=== PATIENT | male | born 1950 | race Caucasian/White ===

== ENCOUNTER 2019-10-05 21:15 | Emergency (ER) | payer MEDICARE, SELFPAY ==
[2019-10-05 21:25] VITALS: BP 199/93; PULSE 55; RESP 20; TEMP 36.9; O2SAT 96; BMI 34.7
--- NOTE | 2019-10-05 21:35 | DI.RAD.S_ITS ---
PROCEDURE: XR FOOT LT MIN 3V INDICATIONS: cut bottom of foot on sharp rock TECHNIQUE: 3 views of the foot were acquired. COMPARISON: None. FINDINGS: Bones: No fractures or dislocations. No suspicious bony lesions. Well-defined plantar enthesophyte seen. Soft tissues: No tibiotalar joint effusion. Achilles tendon appears normal. Laceration over plantar aspect of hindfoot/midfoot is seen. No radiopaque foreign body. IMPRESSION: No acute left foot fracture or dislocation. Laceration over plantar aspect of the midfoot/hindfoot. No radiopaque foreign body. Dictated by: Axel Beavers M.D. on 10/05/2019 at 21:58 Approved by: Axel Beavers M.D. on 10/05/2019 at 21:59
--- NOTE | 2019-10-05 22:32 | ED.WOUNDLAC ---
HPI - Wound/Laceration <CHRISTI Nolan - Last Filed: 10/05/19 23:09> General Chief Complaint: Wound/Laceration Stated Complaint: 3 Laceration in Bottom of Left Foot Time Seen by Provider: 10/05/19 22:32 Mode of arrival: Wheelchair History of Present Illness HPI narrative: 68-year-old male presents emergency department for a laceration on the bottom of his left foot. He states he was walking on some cement and stepped on a rock which caused a laceration and bleeding. He denies any numbness, tingling, difficulty moving his foot, other trauma, or other any other concerns. He denies any major medical issues. Denies any blood thinners. Denies any major allergies. Patient states his last Tdap was 2 years ago. Related Data Allergies Allergy/AdvReac Type Severity Reaction Status Date / Time scopolamine Allergy Unconscious Verified 10/05/19 21:32 Review of Systems <CHRISTI Nolan - Last Filed: 10/05/19 23:09> Review of Systems Narrative: REVIEW OF SYSTEMS: GENERAL: Denies fever or chills. HENT: Denies head trauma. EYE: Denies double vision or vision loss. CARDIOVASCULAR: Denies syncope. MUSCULOSKELETAL: Denies weakness, or deformities. INTEGUMENTARY: Complains of laceration to foot,, see HPI. NEURO: Denies numbness or tingling. Patient History <CHRISTI Nolan - Last Filed: 10/05/19 23:09> Medical History No significant medical problems (Acute) Social History Smoking Status: Never smoker Smoking Status: Never smoker alcohol intake frequency: 0-2 drinks per day Substance Use Type: does not use Exam <CHRISTI Nolan - Last Filed: 10/05/19 23:09> Initial Vital Signs Initial Vital Signs: Vital Signs Temperature 98.4 F 10/05/19 21:25 Pulse Rate 55 L 10/05/19 21:25 Respiratory Rate 20 10/05/19 21:25 Blood Pressure 199/93 H 10/05/19 21:25 Pulse Oximetry 96 10/05/19 21:25 PHYSICAL EXAMINATION: GENERAL: Well groomed, alert, and cooperative. Answers questions promptly and appropriately. Vital signs noted. HENT: Normocephalic, atraumatic. RESPIRATORY: Normal respiratory rate, trachea midline, airway patent. No stridor, nasal flaring or accessory muscle use. MUSCULOSKELETAL: Full range of motion of foot against resistance. Normal gait and coordination. Equal tone and mass bilaterally. EXTREMITIES: CMS intact. Moves all extremities. Pedal pulses 2+ and intact bilaterally. SKIN: Warm, dry, soft, appropriate color for ethnicity. A 9 cm straight horizontal laceration noted to the bottom of left foot on the medial aspect of patient's arch. Bleeding controlled with pressure. NEURO: Alert and Oriented X 3. Good coordination. PSYCH: Appropriate affect and mood. <Raquel King MD - Last Filed: 10/06/19 06:14> Initial Vital Signs Initial Vital Signs: Vital Signs Temperature 98.4 F 10/05/19 21:25 Pulse Rate 55 L 10/05/19 21:25 Respiratory Rate 20 10/05/19 21:25 Blood Pressure 199/93 H 10/05/19 21:25 Pulse Oximetry 96 10/05/19 21:25 Procedures <CHRISTI Nolan - Last Filed: 10/05/19 23:09> Laceration Repair Laceration 1: Site: lower extremity Side (If applicable): left Size (cm): 9 Description: linear Depth: simple, single layer Local Anesthetic: lidocaine 1% and with epi Amount of anesthesia used (mL): 5 Pre-repair: wound explored, irrigated extensively and deep structures intact Skin layer closed with: nylon Size (cm): 5-0 Number of sutures: 10 Technique: simple, interrupted Course <CHRISTI Nolan - Last Filed: 10/05/19 23:09> Orders Ordered: ED Orders 10/05/19 21:35 XR foot LT min 3V Stat Discontinued Medications Bacitracin (Bacitracin) 1 applic TOP NOW ONE Stop: 10/05/19 22:34 Last Admin: 10/05/19 23:04 Dose: 1 applic Documented by: CHIKIS Lidocaine/Epinephrine (Xylocaine 2% W/Epi) 20 ml INJ INTRA-OP ONE Stop: 10/05/19 22:34 Last Admin: 10/05/19 23:04 Dose: 20 ml Documented by: CHIKIS Vital Signs Vital signs: Vital Signs - 8 hr 10/05/19 23:21 Pulse Rate 60 Respiratory Rate 16 Blood Pressure 165/75 H Pulse Oximetry 97 <Raquel King MD - Last Filed: 10/06/19 06:14> Orders Ordered: ED Orders 10/05/19 21:35 XR foot LT min 3V Stat Discontinued Medications Bacitracin (Bacitracin) 1 applic TOP NOW ONE Stop: 10/05/19 22:34 Last Admin: 10/05/19 23:04 Dose: 1 applic Documented by: CHIKIS Lidocaine/Epinephrine (Xylocaine 2% W/Epi) 20 ml INJ INTRA-OP ONE Stop: 10/05/19 22:34 Last Admin: 10/05/19 23:04 Dose: 20 ml Documented by: CHIKIS Vital Signs Vital signs: Vital Signs - 8 hr 10/05/19 23:21 Pulse Rate 60 Respiratory Rate 16 Blood Pressure 165/75 H Pulse Oximetry 97 MDM - Wound/Laceration <CHRISTI Nolan - Last Filed: 10/05/19 23:09> Medical Records Attestation: I reviewed the patient's medical records. Lab Data Attestation: I reviewed the patient's lab results. Imaging Data Extremity x-ray #1: Radiologist's Impression: [place] [address] XRay Report Signed Patient: Hari Aguilar TMR#: [id number] : 2Acct:[id number] Age/Sex: 68 / MDate of Service: 10/05/19 Loc: ED Accession Number: [id number] Procedure: XR foot LT min 3V Ordering Provider: Raquel King MD PROCEDURE: XR FOOT LT MIN 3V INDICATIONS: cut bottom of foot on sharp rock TECHNIQUE: 3 views of the foot were acquired. COMPARISON: None. FINDINGS: Bones: No fractures or dislocations. No suspicious bony lesions. Well-defined plantar enthesophyte seen. Soft tissues: No tibiotalar joint effusion. Achilles tendon appears normal. Laceration over plantar aspect of hindfoot/midfoot is seen. No radiopaque foreign body. IMPRESSION: No acute left foot fracture or dislocation. Laceration over plantar aspect of the midfoot/hindfoot. No radiopaque foreign body. Dictated by: Axel Beavers M.D. on 10/05/2019 at 21:58 Approved by: Axel Beavers M.D. on 10/05/2019 at 21:59 [facility] Narrative Medical decision making narrative: 68-year-old male presenting to the emergency department for a laceration after stepping on a rock. Wound was numbed, irrigated, and extensively explored, no foreign bodies located. Sutures were placed, patient tolerated procedure well, see procedure note. Patient was educated about signs of infection and follow up for suture removal. Patient agreed to plan of care verbalized understanding. Discharge Plan Departure Patient Disposition: Home Clinical Impression: Laceration Discharge Date/Time: 10/05/19 23:28 Instructions: DI for Laceration Repair Activity Restrictions/Additional Instructions: Thank you for entrusting me with your care today. As discussed, I placed 10 sutures in your laceration today. These will need to be removed in approximately 10 days, this can be done with your primary care provider, any walk-in clinic, or emergency department. No foreign bodies were found in your wound today. While there is low-risk for infection at this time, retained foreign bodies and infection are always possible with any cut or break in the skin. Please monitor the wound closely and be re-evaluated immediately if you develop any signs of infection such as pus, increasing redness, increasing pain, fevers, or any other concerns. Return emergency department for any new or worsening symptoms. <Raquel King MD - Last Filed: 10/06/19 06:14> Cosign ED Attending Cosignature Attestation: I was immediately available in the department for consultation throughout this patient's visit. I agree with documentation as above. Raquel King MD
[2019-10-05] MEDS: BACITRACIN OINT 0.9 GM PCKT 1 APPLIC TOP (23:04)
[2019-10-05] MEDS: LIDOCAINE 2% W/EPI INJ 20 ML INJ (23:04)
[2019-10-05 23:21] VITALS: BP 165/75; PULSE 60; RESP 16; O2SAT 97
== END 2019-10-05 23:28 | disposition home or self-care (01) ==
PROVIDERS: Emergency Provider Nurse Practitioner
DX: S91.312A Laceration without foreign body, left foot, initial encounter (principal); W26.8XXA Contact with other sharp object(s), not elsewhere classified, initial encounter; Y93.01 Activity, walking, marching and hiking
CPT/HCPCS: 12004; 73630; 99283; 99284